=== PATIENT | female | born 1960 | race Caucasian/White ===

== ENCOUNTER 2019-05-08 06:19 | Inpatient (IN) ==
--- NOTE | 2019-04-23 13:48 | PAT Medication Instructions ---
Medication Instructions Date of Service April 23, 2019 Home Medications calcium carbonate-vitamin D3 [Calcium 600 + D(3)] 2 cap PO DAILY cyclobenzaprine 10 mg PO TID PRN estradiol 1 mg PO QAM gabapentin 300 mg PO TID multivitamin 1 tab PO QAM [Airborne] 1,000 mg PO QAM ospemifene 60 mg PO QAM polyethylene glycol 3350 [Miralax] 17 g PO DAILY PRN promethazine 25 mg [place] Q6H PRN rizatriptan [Maxalt] 10 mg PO DAILY PRN vitamin E 400 unit PO QAM ASK your surgeon for instructions estradiol 1 mg PO QAM ospemifene 60 mg PO QAM STOP taking 2 weeks before surgery (or as soon as possible if surgery is within 2 weeks) vitamin E 400 unit PO QAM DO NOT take the morning of surgery calcium carbonate-vitamin D3 [Calcium 600 + D(3)] 2 cap PO DAILY cyclobenzaprine 10 mg PO TID PRN multivitamin 1 tab PO QAM [Airborne] 1,000 mg PO QAM polyethylene glycol 3350 [Miralax] 17 g PO DAILY PRN Take morning of surgery With a small sip of water, OTHERWISE NOTHING TO EAT OR DRINK AFTER MIDNIGHT: gabapentin 300 mg PO TID promethazine 25 mg [place] Q6H PRN (if needed) rizatriptan [Maxalt] 10 mg PO DAILY PRN (if needed) Take evening before surgery cyclobenzaprine 10 mg PO TID PRN (if needed) gabapentin 300 mg PO TID polyethylene glycol 3350 [Miralax] 17 g PO DAILY PRN (if needed) promethazine 25 mg [place] Q6H PRN (if needed) rizatriptan [Maxalt] 10 mg PO DAILY PRN (if needed) Other Notes If you have any questions please call us at [phone] or [phone] or [phone] or [phone]
--- NOTE | 2019-04-24 08:52 | Anesthesiology Consultation ---
Date of Service April 24, 2019 Assessment & Plan (1) Encounter for pre-operative examination: PATIENT GOES BY "TRINY" Chart Review Chart Review: Acceptable Risk for Surgery (pending pre-op testing--labs, CXR, EKG) and Patient seen in Pre Admission Testing Consults Requested none Teaching & Discussion Instructed NPO after midnight before surgery, except medications with 15 cc of water. Medication instructions provided according to the PAT guidelines. History Surgery Operation Date: 05/08/19 07:45 Proposed Procedures p C6-C7 Anterior Cervical Discectomy Fusion with C5 Corpectomy, Spinal Cord Monitoring - Edward Pyle, Height/Weight Height: 5 ft 3.75 in Weight: 78.1 kg Allergies Allergy/AdvReac Type Severity Reaction Status Date / Time morphine AdvReac Unknown SEVERE Verified 04/20/19 09:01 HEADACHE nortriptyline AdvReac Unknown SEVERE Verified 04/20/19 09:01 HEADACHE Poultry AdvReac Unknown CHICKEN--SEVERE Verified 01/30/16 07:16 VOMTING, TURKEY--N/V prednisone AdvReac Unknown SEVERE Verified 04/24/19 08:58 INDIGESTION, DIARRHEA pregabalin AdvReac Unknown severe Verified 04/20/19 09:01 headache tramadol AdvReac Unknown AMS, Verified 04/24/19 08:58 "INEFFECTIVE" Medications Home Medications Medication Instructions Recorded Confirmed Last Taken calcium carbonate-vitamin D3 2 cap PO DAILY 04/20/19 04/20/19 Unknown [Calcium 600 + D(3)] cyclobenzaprine 10 mg PO TID PRN 04/20/19 04/20/19 Unknown estradiol 1 mg PO QAM 04/20/19 04/20/19 Unknown gabapentin 300 mg PO TID 04/20/19 04/20/19 Unknown multivitamin 1 tab PO QAM 04/20/19 04/20/19 Unknown [id number] 1,000 mg PO QAM 04/20/19 04/20/19 Unknown [Airborne (lysine HCl)] ospemifene 60 mg PO QAM 04/20/19 04/20/19 Unknown polyethylene glycol 3350 [Miralax] 17 g PO DAILY PRN 04/20/19 04/20/19 Unknown promethazine 25 mg [place] Q6H PRN 04/20/19 04/20/19 Unknown rizatriptan [Maxalt] 10 mg PO DAILY PRN 04/20/19 04/20/19 Unknown vitamin E 400 unit PO QAM 04/20/19 04/20/19 Unknown famotidine [Pepcid] 20 mg PO QAM 04/24/19 04/24/19 Unknown Past Medical History Medical History Cervical stenosis of spine GERD (gastroesophageal reflux disease) Hx of endometriosis Migraine Multiple food allergies CHICKEN AND TURKEY; EGGS - MAIN INGREDIENT- CAN EAT OTHERWISE Neuropathy LOWER EXTREMITIES - WORSE ON RIGHT D/T BACK ISSUES FROM WORK YEARS AGO. Exercise / Class Metabolic Activity II 4-5 Yardwork/Stairs/Walk up hill (DENIES CP OR SOB WITH 1 FOS) Past Family History Family History Father Family history of diabetes mellitus Grandmother (Paternal) Family hx of colon cancer Past Surgical History Surgical History History of back surgery History of X3 History of exploratory laparotomy FOR ENDOMETRIOSIS History of surgery RIGHT LEG FOR CLUB FOOT Hx of cholecystectomy Hx of colonoscopy Hx of hand surgery RIGHT Hx of skin graft Hx of tonsillectomy Hx of total hysterectomy Nausea and vomiting after administration of anesthetic agent Past Anesthesia History No Hx of Anesthesia Complications (OTHER THAN PONV) and No Family Hx of Anesthesia Complications History of PONV No Hx of Motion Sickness and History of PONV STOP BANG Total 3 Social History Smoking Status: Never smoker Do You Dip or Chew Tobacco: No Hx Alcohol Use: Yes Alcohol type: wine alcohol intake frequency: holidays/special occasions only Hx Substance Use: No Review of Systems Pt denies any recent chest pain, shortness of breath, palpitations, cough, fever or URI. Physical Exam Vital Signs BP: 94/65 (per pt this ia baseline, asymptomatic) P: 81bpm SPO2: 98% RA T: 97.8 F R: 12 ENMT Mouth: + dental restorations (two implant posts, one upper R one lower L, no crowns yet); no chipped teeth and no loose teeth Thyromental Distance: < 3.5 Finger Breadths (3) Mallampati Class: I Neck normal visual inspection and + limited neck extension Respiratory normal respiratory effort Auscultation: lungs clear to auscultation bilaterally Cardiovascular Rate/Rhythm: regular rate and regular rhythm Heart Sounds: no murmur Vessels: no carotid bruit Extremities: no edema Testing Laboratory Results 04/24/19 09:01 04/24/19 09:01 PT 9.9 Seconds (9.0-12.0) 04/24/19 09:01 INR 1.0 (0.9-1.1) 04/24/19 09:01 APTT 26.8 Seconds (21.0-31.0) 04/24/19 09:01 Urine Color Yellow 04/24/19 09:01 Urine Appearance Clear (Clear) 04/24/19 09:01 Urine pH 5.5 (4.5-7.5) 04/24/19 09:01 Ur Specific [place] 1.009 (1.000-1.030) 04/24/19 09:01 Urine Protein Negative (Negative) 04/24/19 09:01 Urine Glucose (UA) Negative (Negative) 04/24/19 09:01 Urine Ketones Negative (Negative) 04/24/19 09:01 Urine Nitrite Negative (Negative) 04/24/19 09:01 Ur Leukocyte Esterase Negative (Negative) 04/24/19 09:01 Blood Type O Positive 04/24/19 09:01 Antibody Screen NEGATIVE 04/24/19 09:01 Electrocardiogram Date: 04/24/19 Findings: + NSR @ (69) Chest X-Ray Date: 04/24/19 Findings: + NAD
--- NOTE | 2019-04-24 09:31 | XRay Report ---
XR chest Pre-admission PA/Lat HISTORY: Preop. COMPARISON: Chest 08/22/2015. FINDINGS: Possible 5 mm nodule within the right upper lobe laterally overlying the anterior third rib . Otherwise, lungs are clear. The heart is normal in size. No pleural effusions. No pneumothorax. IMPRESSION: 1. No acute process within the chest. 2. Possible 5 mm nodule within the right upper lobe. Follow-up nonemergent chest CT is recommended fo r further evaluation. ACT 112: Positive. There are findings on this exam that require communication between the performing entity and the patient following Patient Test Result Information Act ([place] Act 112) guidelines. Electronically signed by: Sai Garcia M.D. 04/24/2019 9:29 AM
[2019-04-24 10:24] LABS: Basophils # (auto) 0.01 K/uL (0-0.2); Basophils % (auto) 0.2 %; Eosinophils # (auto) 0.14 K/uL (0-0.5); Eosinophils % (auto) 2.9 %; Hematocrit (blood only) 40.4 % (37-47); Hemoglobin 13.5 g/dL (12.0-16.0); Immature Granulocytes # (auto) 0.01 K/uL (0.00-0.02); Immature Granulocytes % (auto) 0.2 %; Lymphocytes % (auto) 24.8 %; Mean Corpuscular Hemoglobin 31.3 pg (25-34); Mean Corpuscular Hgb Conc 33.4 g/dL (32-36); Mean Corpuscular Volume 93.7 fL (80-100); Mean Platelet Volume 10.4 fL (7.4-10.4); Monocytes # (auto) 0.43 K/uL (0.11-0.59); Monocytes % (auto) 8.9 %; Neutrophils # (auto) 3.05 K/uL (1.4-6.5); Platelet Count 256 K/uL (130-400); RDW Coefficient of Variation 12.6 % (11.5-14.5); RDW Standard Deviation 43.3 fL (36.4-46.3); Red Blood Count 4.31 M/uL (4.2-5.4); White Blood Count 4.84 K/uL (4.8-10.8)
[2019-04-24 10:33] LABS: Appearance Urine Clear (Clear); Bilirubin Urine Negative (Negative); Blood Urine Negative (Negative); Color Urine Yellow; Glucose Urine UA Negative (Negative); Ketones Urine Negative (Negative); Leukocyte Esterase Urine Negative (Negative); Nitrite Urine Negative (Negative); Protein Urine Negative (Negative); Specific Gravity Urine 1.009 (1.000-1.030); Urobilinogen Urine Negative (Negative); pH Urine 5.5 (4.5-7.5)
[2019-04-24 10:34] LABS: BUN Creatinine Ratio 10.6 (10-20); Calcium 8.8 mg/dl (8.5-10.1); Creatinine Clr Calc Pharmacy 72.5 ml/min; Est GFR (African American) 89.5; Est GFR (Non-African American) 77.2; Potassium 4.2 mmol/L (3.5-5.1)
[2019-04-24 10:39] LABS: Partial Thromboplastin Time 26.8 Seconds (21.0-31.0); Prothrombin Time 9.9 Seconds (9.0-12.0)
[~2019-05-08 06:19] MED LIST: ACETAMINOPHEN 500 MG TAB PO SCH; CEFAZOLIN 1000MG 1,000 MG/7.5 ML SYR IV SCH; CeleBREX 200 MG CAP PO SCH; GABAPENTIN 600 MG DOSE PO SCH; HYDROmorphone INJ 2 MG/ML SYR/VIAL ONE; LR 15ML/HR IV SCH; MIDAZOLAM HCL 1 MG/ML 2ML VIAL ONE; PROPOFOL IV EMULSION 10 MG/ML 100 ML VIAL IV ONE; SCOPOLAMINE 1.5 MG TDSY TD SCH; fentaNYL citrate 100 MCG/2 ML VIAL ONE
[2019-05-08] MEDS ORDERED: NEOSTIGMINE METHYLSULFATE 1 MG/ML 10ML VIAL ONE (06:20)
[2019-05-08] MEDS ORDERED: ROCURONIUM BROMIDE 10 MG/ML 5 ML VIAL ONE ×2 (06:20→08:59)
[2019-05-08] MEDS ORDERED: LIDOCAINE HCL 2% 2 ML VIAL/AMP(20MG/ML) INFIL ONE (06:20)
[2019-05-08] MEDS ORDERED: DEXAMETHASONE SOD INJ 4 MG/ML VIAL ONE (06:20)
[2019-05-08] MEDS ORDERED: PROPOFOL IV EMULSION 10 MG/ML 20 ML VIAL IV ONE ×2 (06:20→08:43)
[2019-05-08] MEDS ORDERED: ONDANSETRON INJ 2 MG/ML 2 ML VIAL ONE (06:20)
[2019-05-08] MEDS ORDERED: GLYCOPYRROLATE 0.2 MG/ML VIAL ONE (06:20)
[2019-05-08] MEDS ORDERED: BACITRACIN INJ 50,000 UNIT VIAL ONE (06:57)
[2019-05-08] MEDS ORDERED: ePHEDrine sulfate 50 MG/ML AMP IV PRN (07:12)
[2019-05-08] MEDS ORDERED: ATROPINE SULFATE 0.1 MG/ML 10ML SYR IV PRN (07:12)
[2019-05-08] MEDS ORDERED: MEPERIDINE HCL 25 MG/ML CARP IV PRN (07:12)
[2019-05-08] MEDS ORDERED: PHENYLEPHRINE 100MCG/ML 5ML SYR IV PRN (07:12)
[2019-05-08] MEDS ORDERED: LABETALOL HCL IV 5 MG/ML 20ML IV PRN (07:12)
--- NOTE | 2019-05-08 07:25 | History & Physical Bridge Note ---
Date of Service May 08, 2019 History & Physical Bridge Note I have examined the patient, reviewed the History & Physical and in the interval since the performance of the History & Physical I have noted the following changes of clinical significance: no changes noted
--- NOTE | 2019-05-08 07:28 | History & Physical Report ---
Date of Service May 08, 2019 Assessment & Plan (1) Cervical stenosis of spinal canal: Anterior cervical discectomy fusion C4-5 C5-6 C6-7 Present on Admission?: Yes History of Present Illness Chief Complaint: Neck and arm pain Primary Care Provider: Damaris Villa MD This is a 59-year-old female presents with chronic persistent neck and arm pain. After failing extensive course of nonoperative care is here for surgical intervention. Allergies Allergy/AdvReac Type Severity Reaction Status Date / Time morphine AdvReac Unknown SEVERE Verified 05/08/19 06:42 HEADACHE nortriptyline AdvReac Unknown SEVERE Verified 05/08/19 06:42 HEADACHE Poultry AdvReac Unknown CHICKEN--SEVERE Verified 05/08/19 06:42 VOMTING, TURKEY--N/V prednisone AdvReac Unknown SEVERE Verified 05/08/19 06:42 INDIGESTION, DIARRHEA pregabalin AdvReac Unknown severe Verified 05/08/19 06:42 headache tramadol AdvReac Unknown AMS, Verified 05/08/19 06:42 "INEFFECTIVE" Home Medications Home Medications Medication Instructions Recorded Confirmed Type calcium carbonate-vitamin D3 2 cap PO DAILY 04/20/19 05/08/19 History [Calcium 600 + D(3)] cyclobenzaprine 10 mg PO TID PRN 04/20/19 05/08/19 History estradiol 1 mg PO QAM 04/20/19 05/08/19 History gabapentin 300 mg PO TID 04/20/19 05/08/19 History multivitamin 1 tab PO QAM 04/20/19 05/08/19 History [id number] 1,000 mg PO QAM 04/20/19 05/08/19 History [Airborne (lysine HCl)] ospemifene 60 mg PO QAM 04/20/19 05/08/19 History polyethylene glycol 3350 [Miralax] 17 g PO DAILY PRN 04/20/19 05/08/19 History promethazine 25 mg [place] Q6H PRN 04/20/19 05/08/19 History rizatriptan [Maxalt] 10 mg PO DAILY PRN 04/20/19 05/08/19 History vitamin E 400 unit PO QAM 04/20/19 05/08/19 History famotidine [Pepcid] 20 mg PO QAM 04/24/19 05/08/19 History Past Med/Surg History Medical History Cervical stenosis of spine GERD (gastroesophageal reflux disease) Hx of endometriosis Migraine Multiple food allergies CHICKEN AND TURKEY; EGGS - MAIN INGREDIENT- CAN EAT OTHERWISE Neuropathy LOWER EXTREMITIES - WORSE ON RIGHT D/T BACK ISSUES FROM WORK YEARS AGO. Surgical History History of back surgery History of X3 History of exploratory laparotomy FOR ENDOMETRIOSIS History of surgery RIGHT LEG FOR CLUB FOOT Hx of cholecystectomy Hx of colonoscopy Hx of hand surgery RIGHT Hx of skin graft Hx of tonsillectomy Hx of total hysterectomy Nausea and vomiting after administration of anesthetic agent Family History Father Family history of diabetes mellitus Grandmother (Paternal) Family hx of colon cancer Social History Preferred Language: Ukrainian Communication Ability: Effective Beliefs That Will Affect Care: None Current Living Situation: Spouse Current Living Situation Comment: IS DISABLE D/T STROKE - APHASIA, WEAKNESS RIGHT ARM Feels Safe at Home: Yes Safety Concerns: Feels Safe At This Time Smoking Status: Never smoker Do You Dip or Chew Tobacco: No ; Second Hand Exposure: No ; Hx Alcohol Use: Yes Alcohol type: wine Hx Substance Use: No Physical Exam Physical Exam: Patient alert and oriented neurologically intact. Results & Data Vital Signs (Past 12 Hours) Vital Signs Temp Pulse Resp BP Pulse Ox 05/08/19 06:45 36.4 C L 81 18 109/66 95
[2019-05-08] MEDS ORDERED: CHECK SCOPOLAMINE PATCH PLACEMENT SCH (08:00)
[2019-05-08] MEDS ORDERED: fentaNYL citrate 100 MCG/2 ML VIAL ONE ×3 (08:09→09:36)
[2019-05-08] MEDS ORDERED: FLOSEAL HEMOSTATIC MATRIX 10ML TOP ONE (08:20)
[2019-05-08] MEDS ORDERED: PHENYLEPHRINE 100MCG/ML 5ML SYR ONE (08:43)
[2019-05-08] MEDS ORDERED: ePHEDrine sulfate 50 MG/ML SYR ONE (08:43)
[2019-05-08] MEDS ORDERED: LARYING-O-JET KIT (LTA) ONE (08:43)
--- NOTE | 2019-05-08 09:38 | Operative Report ---
Post Operative Report Pre & Post Diagnosis Operation Date: 05/08/19 07:45 Pre-Op Diagnosis: Spondylosis with Radiculopathy, Cervical Region Post-Op Diagnosis: Spondylosis with Radiculopathy, Cervical Region I identified the patient and participated in the time-out.: Yes Procedure Operation Date: 05/08/19 07:45 Actual Procedures #1 anterior cervical discectomy with bilateral foraminotomies C4-5 C5-6 C6-7. #2 anterior cervical arthrodesis C4-5 C5-6 C6-7. #3 placement of Spira cage filled with DBM 6 mm at see 4 5 and 7 mm at C5-6 and C6-7. #4 application of sheriff plate and screws from C4-C7. Surgeon Edward Pyle, Metal Fitter Daquan Schwartz Estimated Blood Loss 20 Findings Consistent with Post-Op Diagnosis Specimens None Indications This is a 59-year-old female known to me the presents with above-mentioned diagnosis after failing extensive course of nonoperative care is here for surgical intervention. Description of Procedure Patient was met with identified informed consent obtained. Patient was then taken to the operative suite underwent intubation placed in a supine position Víctor table the head Phelan head noted. All bony prominences well-padded eyes inspected to ensure no external pressure placed upon. This point I identified the see 6 vertebral body and a transverse incision was placed along the right anterior aspect of the cervical spine overlying his region. Sharp dissection with the assistance of bipolar electrocautery was performed down to and exposing the anterior cervical spine from C4-C7. Self-retaining retractors placed. Then performed a complete discectomy of C4-5 out to the uncovertebral joints bilaterally. Lester distracting pins were utilized to assist in visualization. Removed all posterior annular fibers longitudinal ligament bilateral foraminotomies performed. Endplates burred to subcortical bleeding bone and a 6 mm Spira cage filled with DBM tapped into position. I then proceeded to C5-6. Again a complete discectomy performed up to the uncovertebral joints bilaterally. Lester distracting pins again utilized. Removed all posterior annular fibers longitudinal ligament bilateral foraminotomies performed. Endplates burred to subcortical bleeding bone and a 7 mm Spira cage filled with DBM tapped in position. Lastly I proceeded to C6-7. Again complete discectomy performed out to the uncovertebral joints bilaterally. Lester distracting pins again utilized. Removed all posterior annular fibers longitudinal ligament bilateral foraminotomies performed. Endplates burred to subcortical bleeding bone and a 7 mm Spira cage filled with DBM tapped in position. All anterior osteophytes were then burred to a smooth cortical surface and a sheriff plate and screws applied with the assistance of fluoroscopy. The incision was then copiously irrigated explored to ensure no damage to surrounding structures remaining bleeding. 10 round RACHELE drain inserted. The incision was then closed with 2 Vicryl in a fashion of 4 Monocryl for final skin closure. Steri-Strip sterile dressings placed. Patient will continue to PACU stable disc. Please note Daquan Schwartz was present at the entire procedure involved in patient positioning complex portions of the surgery and final skin closure. Lastly spinal cord monitoring was utilized throughout the procedure no changes noted. I attest to the content of the Intraoperative Record and any orders documented therein. Any exceptions are noted below.
--- NOTE | 2019-05-08 10:05 | Fluoroscopy Report ---
FL cervical 2-3V CLINICAL HISTORY: Anterior cervical discectomy and fusion from C4 through C7. COMPARISON STUDY: MRI of the cervical spine August 18, 2018. FLUOROSCOPY TIME: 11 seconds. FLUOROSCOPIC IMAGES: 3 FINDINGS: These images demonstrate a C4-C7 anterior discectomy and fusion. Hardware is intact. Alignm ent is anatomic. Endotracheal tube is partially imaged. Surgical drain is in place. IMPRESSION: Expected findings following C4-C7 anterior discectomy and fusion. ACT 112: Negative or not required by law. Electronically signed by: Alexis Hightower M.D. 05/08/2019 10:04 AM
[2019-05-08] MEDS: fentaNYL citrate 100 MCG/2 ML VIAL IV PRN ×4 (10:17→10:48)
--- NOTE | 2019-05-08 11:08 | Anesthesiology Progress Note ---
Date of Service May 08, 2019 Anesthesia Post Procedure Vital Signs Vital Signs: Temp Pulse Pulse Resp BP Pulse Ox 05/08/19 10:50 36.6 C 54 L 18 120/76 100 05/08/19 10:40 54 L 14 117/71 100 05/08/19 10:30 53 L 16 125/75 100 05/08/19 10:20 67 16 124/82 100 05/08/19 10:10 61 15 127/81 100 05/08/19 10:00 64 16 119/77 100 05/08/19 09:51 36.2 C L 76 18 111/76 100 05/08/19 06:45 36.4 C L 81 18 109/66 95 Pain Intensity Head: Pain Intensity: 3 Posterior Neck: Pain Intensity: 3 Transfer of Care Handoff Completed per policy Notes Mental Status: alert / awake / arousable Patient Amnestic to Procedure: Yes Nausea / Vomiting: adequately controlled Pain: adequately controlled Airway Patency, RR, SpO2: stable & adequate BP & HR: stable & adequate Hydration State: stable & adequate Anesthetic Complications: no major complications apparent and Pt Satisfied with anesthetic care Notes: The patient is doing well. Her neck does not appear swollen.
[2019-05-08] MEDS ORDERED: ALUMINUM/MAGNESIUM SUSP 30 ML UDC PO PRN (11:40)
[2019-05-08] MEDS ORDERED: ACETAMINOPHEN 1,000 MG/100 ML VIAL IV PRN (11:40)
[2019-05-08] MEDS ORDERED: PROMETHAZINE HCL 12.5 MG in SODIUM CHLORIDE 0.9% 50 ML IV PRN (11:40)
[2019-05-08] MEDS ORDERED: RIZATRIPTAN BENZOATE 10 MG TAB PO PRN (11:40)
[2019-05-08] MEDS ORDERED: MAGNESIUM HYDROXIDE SUSP 30 ML UDC PO PRN (11:40)
[2019-05-08] MEDS ORDERED: LORazepam 0.5 MG TAB PO PRN (11:40)
[2019-05-08] MEDS ORDERED: ONDANSETRON 4 MG OD TAB PO PRN (11:40)
[2019-05-08] MEDS ORDERED: LORazepam 0.5 MG/1 ML VIAL IV PRN (11:40)
[2019-05-08] MEDS ORDERED: SOD PHOSPHATE/SOD BIPHOSPHATE ENEMA 132 ML BTL PR PRN (11:40)
[2019-05-08] MEDS ORDERED: NALOXONE HCL 0.4 MG/1 ML VIAL/CARP IV PRN (11:40)
[2019-05-08] MEDS ORDERED: DO NOT ADMINISTER FLU VACCINE PRN (11:40)
[2019-05-08] MEDS ORDERED: FAMOTIDINE 20 MG TAB PO PRN (11:40)
[2019-05-08] MEDS ORDERED: METOCLOPRAMIDE HCL INJ 5 MG/ML 2 ML VIAL IV PRN (11:40)
[2019-05-08] MEDS ORDERED: HYDROmorphone INJ 1 MG/ML SYRINGE IV PRN (11:40)
[2019-05-08] MEDS ORDERED: DEXAMETHASONE SOD PHOSPHATE 8 MG in SYRINGE 0 ML IV PRN (11:40)
[2019-05-08] MEDS ORDERED: ONDANSETRON INJ 2 MG/ML 2 ML VIAL IV PRN (11:40)
[2019-05-08] MEDS ORDERED: RACEPINEPHRINE 2.25% NEBU SOLN 0.5 ML VIAL INH PRN (11:40)
[2019-05-08] MEDS ORDERED: HYDROmorphone INJ 0.5 MG/0.5 ML SYR IV PRN (11:40)
[2019-05-08] MEDS ORDERED: DO NOT ADMINISTER PNEUMOCOCCAL VACCINE PRN (11:40)
[2019-05-08] MEDS: OXYCODONE HCL IR 5 MG TAB (IMMEDIATE RELEASE) PO PRN ×3 (12:46→21:09)
[2019-05-08] MEDS: GABAPENTIN 300 MG CAP PO SCH ×2 (12:47→20:32)
[2019-05-08] MEDS: SODIUM CHLORIDE 0.9% 1000ML 1,000 ML IV SCH ×2 (12:47→22:26)
[2019-05-08] MEDS: CEFAZOLIN 2000MG 2,000 MG/15 ML SYR IV SCH ×2 (16:47→23:27)
[2019-05-08] MEDS: DOCUSATE SODIUM/SENNA 50/8.6MG TAB PO SCH (20:32)
[2019-05-08] MEDS: ACETAMINOPHEN 500 MG TAB PO PRN (23:27)
[2019-05-09] MEDS: POLYETHYLENE (MIRALAX) 17 GM PACK PO SCH ×3 (05:23→16:54)
[2019-05-09 06:05] LABS: Eosinophils # (auto) 0.01 K/uL (0-0.5); Eosinophils % (auto) 0.1 %; Hematocrit (blood only) 36.3 % (37-47); Immature Granulocytes # (auto) 0.01 K/uL (0.00-0.02); Immature Granulocytes % (auto) 0.1 %; Lymphocytes # (auto) 1.24 K/uL (1.2-3.4); Lymphocytes % (auto) 15.9 %; Mean Corpuscular Hemoglobin 30.5 pg (25-34); Mean Corpuscular Hgb Conc 33.1 g/dL (32-36); Mean Corpuscular Volume 92.4 fL (80-100); Mean Platelet Volume 10.1 fL (7.4-10.4); Neutrophils # (auto) 5.84 K/uL (1.4-6.5); Neutrophils % (auto) 74.9 %; Platelet Count 229 K/uL (130-400); RDW Coefficient of Variation 12.6 % (11.5-14.5); Red Blood Count 3.93 M/uL (4.2-5.4)
[2019-05-09 06:40] LABS: BUN Creatinine Ratio 10.2 (10-20); Calcium 8.5 mg/dl (8.5-10.1); Est GFR (African American) 104.8; Est GFR (Non-African American) 90.4; Potassium 3.9 mmol/L (3.5-5.1)
[2019-05-09] MEDS: OXYCODONE HCL IR 5 MG TAB (IMMEDIATE RELEASE) PO PRN ×3 (06:45→21:41)
[2019-05-09] MEDS: GABAPENTIN 300 MG CAP PO SCH ×3 (08:24→20:32)
[2019-05-09] MEDS: FAMOTIDINE 20 MG TAB PO SCH (08:25)
--- NOTE | 2019-05-09 08:28 | Orthopedic Progress Note ---
Date of Service May 09, 2019 Assessment & Plan (1) Cervical stenosis of spinal canal: Due to the patient's significant dysphagia we are going to keep her another day. We will continue with IV Decadron. Continue with soft/liquid diet. Up and ambulatory ad brianne. Maintain RACHELE drain. Continue use of [place] cervical collar at all times with the exception of eating. Hopefully discharge home tomorrow. Supervising Physician Co-Signing Physician Notes Dr. Edward Pyle Subjective Patient has complaints of dysphasia. She is only tolerating a liquid diet. She has not been up and ambulatory to the restroom yet. RACHELE drain output last shift was 10 cc. Denies radicular arm pain. Is wearing her [place] collar. Review of Systems Review of Systems: All systems reviewed & are unremarkable except as noted in HPI & below Physical Exam Physical Exam: Alert and oriented x3. [place] collar is intact. Cervical dressing is clean dry and intact. Strength is intact bilateral upper and lower extremities. No obvious distress. She is satting 98% on room air. Results & Data Vital Signs (Past 12 Hours) Vital Signs Temp Pulse Pulse Resp BP Pulse Ox 05/09/19 07:30 78 18 98 05/09/19 06:20 36.5 C 64 16 106/73 99 05/09/19 04:20 36.8 C 59 L 16 106/73 100 05/09/19 02:42 60 16 100 05/09/19 02:20 36.7 C 57 L 14 100/65 100 05/09/19 00:20 36.6 C 58 L 14 91/61 L 100 05/08/19 23:25 60 16 100 05/08/19 22:21 36.6 C 56 L 14 104/68 100 05/08/19 20:27 36.6 C 67 18 101/65 98
[2019-05-09] MEDS ORDERED: [UNRECOGNIZED DRUG - MIXTURE] PO SCH (09:00)
[2019-05-09] MEDS: DEXAMETHASONE SOD PHOSPHATE 8 MG in SYRINGE 0 ML IV SCH ×2 (09:53→16:44)
[2019-05-09] MEDS: ACETAMINOPHEN 500 MG TAB PO PRN ×2 (10:54→23:18)
[2019-05-09] MEDS: DOCUSATE SODIUM/SENNA 50/8.6MG TAB PO SCH (20:32)
[2019-05-10] MEDS: POLYETHYLENE (MIRALAX) 17 GM PACK PO SCH ×3 (00:13→13:10)
[2019-05-10] MEDS: DEXAMETHASONE SOD PHOSPHATE 8 MG in SYRINGE 0 ML IV SCH ×2 (01:13→08:32)
[2019-05-10] MEDS: OXYCODONE HCL IR 5 MG TAB (IMMEDIATE RELEASE) PO PRN ×2 (04:19→13:31)
[2019-05-10] MEDS: GABAPENTIN 300 MG CAP PO SCH ×2 (08:32→13:32)
[2019-05-10] MEDS: FAMOTIDINE 20 MG TAB PO SCH (08:32)
[2019-05-10] MEDS ORDERED: bisacodyL 10 MG SUPP PR PRN (09:40)
[2019-05-10] MEDS ORDERED: OXYCODONE IR HOME PACK PO ONE ×2 (13:28→13:45)
== END 2019-05-10 14:03 | disposition home or self-care (01) | DRG 473 ==
LOC: ASU 06:19 → 3E 10:26